=== PATIENT | female | born 1965 | race Two or more races ===

== ENCOUNTER → 2017-02-03 | Outpatient (CLI) | payer OTHER ==
--- NOTE | 2017-02-03 18:11 | KCIC ---
Bilateral digital screening mammograms: Reason for examination: Routine screening. Comparison is made to previous studies dated 11/06/1999 and 10/26/2012. Interpretation was made with the benefit of CAD. The skin and nipples show no abnormalities. No abnormal axillary lymph nodes are seen. The breast parenchyma shows scattered fibroglandular density. (Breast density: Category B.) There are some clustered calcifications present in the central right breast. Recommend further evaluation with coned opacification views. There are no other dominant masses, suspicious calcifications or architectural distortions. Impression: Clustered calcifications in the central right breast. Recommend further evaluation with coned magnification views. BI-RADS category 0: Incomplete. Additional imaging is recommended. "Our facility is accredited by the [employer]ammography [employer]." This patient's information has been entered into a reminder system for the patient to be notified with the results of her examination and a target date for the next mammogram. Electronically signed by: Tammy Mahoney MD (02/03/2017 6:08 PM) [id number]
== END | disposition home or self-care (01) ==
LOC: KCIC MAMMO 10:02
PROVIDERS: ATTEND Family Medicine
DX: Z12.31 Encounter for screening mammogram for malignant neoplasm of breast (principal)
CPT/HCPCS: G0202; 77067

== ENCOUNTER → 2017-02-10 | Outpatient (CLI) | payer OTHER ==
--- NOTE | 2017-02-10 15:47 | KCIC ---
Right breast diagnostic digital mammograms: Reason for examination: Calcifications on screening mammogram. Comparison is made to mammographic exam dated 02/03/2017. Interpretation was made with the benefit of CAD. Clustered calcifications remain present centrally in the 12:00 B position of the right breast. DCIS cannot be excluded and further evaluation with stereotactic biopsy is recommended. IMPRESSION: Clustered calcifications at the central 12:00 B position of the right breast. Recommend stereotactic biopsy to exclude DCIS. BI-RADS Category 4: Suspicious. The patient was notified about these findings at the time of the examination. Dr. Guevara was notified about these findings at 3:42 PM on 02/10/2017. "Our facility is accredited by the [employer]ammography [employer]." Electronically signed by: Tammy Mahoney MD (02/10/2017 3:44 PM) [id number]
== END | disposition home or self-care (01) ==
LOC: KCIC MAMMO 10:12
PROVIDERS: ATTEND Family Medicine
DX: R92.1 Mammographic calcification found on diagnostic imaging of breast (principal)
CPT/HCPCS: G0206; 77065

== ENCOUNTER → 2017-02-22 | Outpatient (CLI) | payer OTHER ==
[~2017-02-22] MED LIST: LIDOCAINE 1% / SOD BICARB 8.4% 20 ML VIAL. IJ ONE; LIDOCAINE 2%/EPI 1:100,000 20 ML VIAL. IJ ONE
--- NOTE | 2017-02-23 14:11 | PATHOLOGY ---
PATHOLOGY REPORT * * * * * * * * FINAL DIAGNOSIS: Breast tissue, right breast sterotactic needle biopsies: - Small ancient fibroadenoma with associated calcifications. - Focal stromal fibrosis, mild duct ectasia, and small cyst with apocrine metaplasia. COMMENT: There is no atypia or evidence of malignancy. (JPM:pit; 02/23/2017) REPORT ELECTRONICALLY SIGNED BY: Kamari Deshpande M.D. DATE/TIME: 02/23/2017 14:10 * * * * * * * * GROSS PATHOLOGY: Received in formalin labeled "Myra Nino, right breast," are multiple needle cores of yellow-mary fibrofatty tissue measuring 3.5 x 3.9 x 1.0 cm in aggregate dimensions. Also received is a plastic cassette containing multiple cores of yellow-mary fibrofatty tissue measuring 2.5 x 1.7 x 0.8 cm in aggregate dimensions. The tissue in the cassette is transferred to cassette A3, and the remaining tissue is submitted in its entirety in cassette A1 and A2. The cold ischemic time is 13 minutes. The total formalin fixation time is 12 hours and 42 minutes. (TSD; 02/22/2017) INITIAL CPT CODE(S): A; 52089 Professional services performed by [facility] at [address] [address] Technical services performed by [facility] at [address] [place] [address], [address], [place] [address]. Dr. Pratt, [facility] Radiology [phone] SPECIMEN(S) RECEIVED: A.Right breast tissue CLINICAL HISTORY: Right breast calcifications PATIENT: MYRA NINO /AGE: 1012/24/1965 (Age: 51) PATIENT #: [id number] ALT CASE #: SPECIMEN COLLECTION DATE: 02/22/2017 SPECIMEN RECEIVED DATE: 02/22/2017 [facility] - [address] [place] [address] - PHONE: [phone] * * * END OF REPORT * * *
--- NOTE | 2017-02-24 13:24 | RAD ---
Clinical History: Suspicious microcalcifications right breast. Relative benefits risks and alternatives to the procedure were discussed and written informed consent was obtained. The patient patient was placed prone on a biopsy table and target microcalcifications were localized by stereotactic technique from above in the CC projection. With local anesthesia and sterile technique and mammogram stereotactic guidance percutaneous biopsy was performed with an 11-gauge Mammotome needle and vacuum assistance. Multiple samples were obtained and sent to pathology. The procedure was well tolerated. A marker was placed at the end of procedure. CC and ML views were obtained to confirm clip placement. The patient was sent home in good condition with written and verbal instructions. Impression: Status post stereotactic guided biopsy of microcalcifications. Specimen radiograph: A radiograph was obtained of the tissue specimen. Multiple microcalcifications are seen in the specimen. The specimen was inked and sent to pathology. Impression: Target microcalcifications are in the specimen. Pathology is pending. [facility]
== END | disposition home or self-care (01) ==
LOC: MAMMO 07:56
PROVIDERS: ATTEND Family Medicine
DX: R92.8 Other abnormal and inconclusive findings on diagnostic imaging of breast (principal)
CPT/HCPCS: 19085; 77022; 88305; C1713; G0206; J3490; 77065

== ENCOUNTER → 2019-03-08 | Outpatient (CLI) | payer OTHER ==
--- NOTE | 2019-03-08 18:21 | KCIC ---
BILATERAL SCREENING MAMMOGRAM History: Routine screening. Comparison: Bilateral mammogram 02/03/2017. Technique: Routine bilateral digital mammogram views were obtained. Findings: Breast Tissue Density A : The breasts are almost entirely fatty. Biopsy clip right breast 12:00 B position. Cluster of microcalcifications in this location are no longer seen. Glandular nodularity of the left breast is stable. There are no dominant masses, suspicious microcalcifications, or architectural distortion. IMPRESSION: No mammographic evidence of malignancy. Recommend routine screening. BI-RADS category 2: Benign findings. The images were reviewed with computer aided detection. Patient information is entered into the reminder system with a target due date for the next screening mammogram. Mammography is the most sensitive method for finding small breast cancers, but it does not detect them all and is not a substitute for careful clinical examination. A negative mammogram does not negate a clinically suspicious finding and should not result in delay in biopsying a clinically suspicious abnormality. "Our facility is accredited by the [employer] Mammography [employer]." Electronically signed by: Rufino Boyd MD (03/08/2019 6:18 PM) [facility]
== END | disposition home or self-care (01) ==
LOC: KCIC MAMMO 10:50
PROVIDERS: ATTEND Family Medicine
DX: Z12.31 Encounter for screening mammogram for malignant neoplasm of breast (principal)
CPT/HCPCS: 77067

== ENCOUNTER → 2020-05-27 | Outpatient (CLI) | payer OTHER ==
--- NOTE | 2020-05-27 16:33 | KCIC ---
INDICATION: Reason: ACUTE KIDNEY FAILURE / Spl. Instructions: / History: COMPARISON: None. TECHNIQUE: Grayscale and color ultrasound images obtained of the bilateral kidneys and bladder. FINDINGS: Right Kidney: 86 mm. No hydronephrosis. Left Kidney: 82 mm. No hydronephrosis. Lobulated appearance of kidneys bilaterally. Bladder: Prevoid volume 25 cc. IMPRESSION: * No hydronephrosis bilaterally. Electronically signed by: Johny Simms MD (05/27/2020 4:31 PM) [id number]
== END ==
LOC: KCIC US 14:43
PROVIDERS: ATTEND Internal Medicine Nephrology
DX: N17.9 Acute kidney failure, unspecified (principal)
CPT/HCPCS: 76770

== ENCOUNTER → 2020-06-05 | Outpatient (CLI) | payer OTHER ==
--- NOTE | 2020-06-05 11:46 | KCIC ---
EXAM: Bilateral screening mammogram. HISTORY: 54-year-old female presents for screening mammography. TECHNIQUE: Full-field digital craniocaudal and mediolateral oblique views of both breasts are obtaine d for evaluation. Computer aided detection was applied. COMPARISON: 03/08/2019, 02/22/2017, 02/10/2017, 02/03/2017 BREAST PARENCHYMAL DENSITY: Level B - Scattered fibroglandular densities. FINDINGS: There is no new suspicious mass, microcalcification or region of architectural distortion. There are stable areas of nodularity and asymmetry within both breasts, allowing for differences in p atient positioning and compression technique. There is a biopsy clip within the anterior right breast . IMPRESSION: BI-RADS Category 2: Benign finding(s). RECOMMENDATION: Annual mammography is recommended. If your mammogram demonstrates that you have dense breast tissue, which could hide abnormalities, and if you have other risk factors for breast cancer that have been identified, you might benefit from s upplemental screening tests that may be suggested by your ordering physician. Dense breast tissue, i n and of itself, is a relatively common condition. This information is not provided to cause undue c oncern, but rather to raise your awareness and to promote discussion with your physician regarding th e presence of other risk factors, in addition to dense breast tissue. A report of your mammography re sults will be sent to you and your physician. You should contact your physician if you have any ques tions or concerns regarding this report. Mammography is a sensitive method for finding small breast cancers, but it does not detect them all a nd is not a substitute for careful clinical examination. A negative mammogram does not negate a clin ically suspicious finding and should not result in delay in biopsying a clinically suspicious abnorma lity. PQRS compliance statement - Patient information was entered into a reminder system with a target due date for the next mammogram. "Our facility is accredited by the [employer] Mammography Program." Electronically signed by: Janey Martinez MD (06/05/2020 11:44 AM) [email or web address]
== END ==
LOC: KCIC MAMMO 10:49
PROVIDERS: ATTEND Family Medicine
DX: Z12.31 Encounter for screening mammogram for malignant neoplasm of breast (principal)
CPT/HCPCS: 77067